=== PATIENT | male | born 1945 | race Caucasian/White ===

== ENCOUNTER 2019-05-18 09:23 | Day surgery (SDC) | payer OTHER ==
[2019-05-15 16:01] VITALS: BMI 22.6
[2019-05-18 10:02] VITALS: TEMP 96.3
[2019-05-18 11:52] VITALS: BP 108/72; PULSE 78
--- NOTE | 2019-05-19 16:19 | PATH ---
Surgical Pathology Report Patient Name: LUIS CESPEDES [facility]. Rec. #: [id number] /Age/Gender: 1945 (Age: 73) / M Account: [id number] Location: [facility]-ENDOSCOPY Taken: 05/18/2019 Received: 05/18/2019 Reported: 05/19/2019 Physicians: Huang Perdomo M.D. Specimen(s) Received SIGMOID POLYP Clinical History Melena Postoperative diagnosis: Sigmoid polyp, hemorrhoids, melena Final Diagnosis SIGMOID COLON POLYP, BIOPSY: TUBULAR ADENOMA. Electronically Signed Tami Chin M.D. Gross Description Received in formalin, labeled "sigmoid polyp biopsy" is a chaves, irregular portion of soft tissue measuring 0.5 cm. in greatest dimension. The specimen is submitted in toto in one cassette. 05/18/2019 [facility]05/18/2019
== END 2019-05-18 11:53 | disposition home or self-care (01) ==
LOC: JASU-ENDO 09:23
PROVIDERS: ATTEND Internal Medicine Gastroenterology
PROC: 0DBN8ZX Excision of Sigmoid Colon, Via Natural or Artificial Opening Endoscopic, Diagnostic (ICD-10-PCS; principal; 2019-05-18 10:30)
DX: K92.1 Melena (principal); D12.5 Benign neoplasm of sigmoid colon; K64.8 Other hemorrhoids; I10 Essential (primary) hypertension; I25.10 Atherosclerotic heart disease of native coronary artery without angina pectoris; E78.5 Hyperlipidemia, unspecified
CPT/HCPCS: 88305-TC